=== PATIENT | male | born 1980 | race Caucasian/White ===

== ENCOUNTER 2020-10-04 18:29 | Emergency (ER) | payer SELFPAY ==
[2020-10-04] MEDS ORDERED: Clindamycin HCl 150 MG Cap PO ONE (20:12)
[2020-10-04 20:22] LABS: ANION GAP 11.5 mEq/L (7-13); CHLORIDE,CL 103 mmol/L (98-107); SODIUM,NA 143 mmol/L (136-145)
--- NOTE | 2020-10-04 20:24 | EDM.PDOC ---
ED HPI GENERAL MEDICAL PROBLEM - General Chief Complaint: ENT Problem Stated Complaint: INFECTION IN MOUTH FACE SWELLING Time Seen by Provider: 10/04/20 20:10 Source of Information: Reports: Patient, RN History Limitations: Reports: No Limitations - History of Present Illness INITIAL COMMENTS - FREE TEXT/NARRATIVE: ED with c/o right facial swelling, upper right molar broke infected, onset sy on Friday, saw Dentist on Friday started Amoxicillin, Unable to eat any thing but liquids. Face swelling down at times then will swell back up. Chill. Estimates 10# weight loss in last week. 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 Social & Family History - Family History Family Medical History: No Pertinent Family History - Tobacco Use Tobacco Use Status *Q: Never Tobacco User Second Hand Smoke Exposure: No - Caffeine Use Caffeine Use: Reports: Coffee, Energy Drinks - Recreational Drug Use Drug Use in Last 12 Months: Yes Recreational Drug Type: Reports: Marijuana/Hashish Recreational Drug Use Frequency: Daily ED ROS ENT - Review of Systems Review Of Systems: Comprehensive ROS is negative, except as noted in HPI. ED EXAM, ENT - Physical Exam Exam: See Below Exam Limited By: No Limitations General Appearance: Alert, Mild Distress Eye Exam: Bilateral Eye: Normal Fundi Ears: Normal External Exam Nose: Normal Inspection Mouth/Throat: Dental Abcess (right upper posterior molar), Gum Swelling (right upper) Head: Atraumatic, Normocephalic, Facial Swelling (right maxillary) Neck: Lymphadenopathy (R) Respiratory/Chest: No Respiratory Distress, Lungs Clear Cardiovascular: Normal Peripheral Pulses, Regular Rate, Rhythm Extremities: Normal Inspection Neurological: Alert, Oriented, Normal Cognition Psychiatric: Normal Affect, Normal Mood Skin: Warm, Dry, Intact Course - Vital Signs Last Recorded V/S: Last Vital Signs Temp 98.3 F 10/04/20 19:22 Pulse 85 10/04/20 19:22 Resp 16 04/28/21 19:22 BP 110/84 10/04/20 19:22 Pulse Ox 100 10/04/20 19:22 - Orders/Labs/Meds Labs: Laboratory Tests 10/04/20 10/04/20 Range/Units 20:00 20:00 WBC 12.2 H (5.0-10.0) 10^3/uL RBC 5.13 (4.6-6.2) 10^6/uL Hgb 15.4 (14.0-18.0) g/dL Hct 45.3 (40.0-54.0) % MCV 88.3 (80-100) fL MCH 30.0 (27.0-34.0) pg MCHC 34.0 (33.0-35.0) g/dL Plt Count 264 (150-450) 10^3/uL Neut % (Auto) 68.9 (42.2-75.2) % Lymph % (Auto) 17.8 L (20.5-50.1) % Edwards % (Auto) 10.6 H (2-8) % Eos % (Auto) 2.2 (1.0-3.0) % Baso % (Auto) 0.5 (0.0-1.0) % Sodium 143 (136-145) mmol/L Potassium 4.5 (3.5-5.1) mmol/L Chloride 103 (98-107) mmol/L Carbon Dioxide 33 H (21-32) mmol/L Anion Gap 11.5 (7-13) mEq/L BUN 14 (7-18) mg/dL Creatinine 0.92 (0.70-1.30) mg/dL Est Cr Clr Drug Dosing 121.61 mL/min Estimated GFR (MDRD) > 60 Glucose 103 H (70-99) mg/dL Calcium 9.5 (8.5-10.1) mg/dL Meds: Medications Discontinued Medications Generic Name Dose Route Start Last Admin Trade Name Freq PRN Reason Stop Dose Admin Clindamycin HCl 300 mg 10/04/20 20:12 10/04/20 20:19 Clindamycin Hcl 150 Mg Cap PO 10/04/20 20:13 300 mg ONETIME ONE Administration Departure - Departure Time of Disposition: 20:22 Disposition: Home, Self-Care 01 Condition: Good Clinical Impression: Dental abscess - Discharge Information *PRESCRIPTION DRUG MONITORING PROGRAM REVIEWED*: No *COPY OF PRESCRIPTION DRUG MONITORING REPORT IN PATIENT MICHELLE: No Instructions: Dental Abscess, [id number] Referrals: PCP,None [Primary Care Provider] - Forms: ED Department Discharge Additional Instructions: oral rinse after meals alternate tylenol 650mg and ibuprofen 600mg every 4 hours a needed for discomfort stop amoxicillin clindamycin 300mg three times daily for 7 days follow up with dentist as scheduled, sooner if symptoms are worsening Sepsis Event Note (ED) - Evaluation Sepsis Screening Result: No Definite Risk - Focused Exam Vital Signs: Vital Signs Temp Pulse Resp BP Pulse Ox 10/04/20 19:22 98.3 F 85 16 110/84 100
== END 2020-10-04 20:28 | disposition home or self-care (01) ==
LOC: DL.ED 18:29
DX: K04.7 Periapical abscess without sinus (principal)
CPT/HCPCS: 36415; 80048; 85025; 99283; A9270